=== PATIENT | male | born 1995 | race African-American/Black ===

== ENCOUNTER 2019-06-20 10:10 | Emergency (ER) | payer BC ==
[~2019-06-20] VITALS: Ht 175.3 cm; Wt 64.0 kg
[2019-06-20] MEDS ORDERED: MORPHINE SULFATE 4 MG/ML CPJ (NOT FOR IM USE) IV ONE (10:45)
[2019-06-20] MEDS ORDERED: KETAMINE HCL 50 MG/ML 10ML IV ONE (11:15)
[2019-06-20] MEDS ORDERED: PROPOFOL 200MG/20ML VIAL IV PRN (11:15)
[2019-06-20] MEDS ORDERED: ONDANSETRON HCL 4MG/2ML INJ IV ONE (11:15)
[2019-06-20 12:48] VITALS: BP 153/102
== END 2019-06-20 12:59 | disposition home or self-care (01) ==
LOC: ER 10:21
DX: S43.004A Unspecified dislocation of right shoulder joint, initial encounter (principal); X58.XXXA Exposure to other specified factors, initial encounter; Y93.89 Activity, other specified; Y92.89 Other specified places as the place of occurrence of the external cause; Y99.8 Other external cause status
CPT/HCPCS: 73030; 93005; 96374; 96375; 99285; J2270; J2405; J2704; J3490; Z7610; L3670

== ENCOUNTER 2021-10-15 11:39 | Emergency (ER) | payer BC, MEDICAID ==
[~2021-10-15] VITALS: Ht 157.5 cm; Wt 63.0 kg
[2021-10-15] MEDS ORDERED: MORPHINE SULFATE 4 MG/ML CPJ (NOT FOR IM USE) IV STA (12:04)
[2021-10-15] MEDS ORDERED: SODIUM CHLORIDE 0.9% 1,000 ML IV ONE (12:15)
[2021-10-15] MEDS ORDERED: PROPOFOL 200MG/20ML VIAL IV ONE (13:00)
[2021-10-15 16:13] VITALS: BP 145/103
== END 2021-10-15 16:35 | disposition home or self-care (01) ==
LOC: ER 11:51
DX: S43.084A Other dislocation of right shoulder joint, initial encounter (principal); W01.0XXA Fall on same level from slipping, tripping and stumbling without subsequent striking against object, initial encounter; Y93.89 Activity, other specified; Y92.89 Other specified places as the place of occurrence of the external cause; Y99.8 Other external cause status
CPT/HCPCS: 23650; 73030; 96374; 99152; 99285; J2270; J2704; J7030; A4565

== ENCOUNTER 2022-01-06 21:12 | Emergency (ER) | payer MEDICAID ==
[~2022-01-06] VITALS: Ht 167.6 cm; Wt 68.0 kg
[2022-01-06] MEDS ORDERED: MORPHINE SULFATE 10 MG/ML CPJ IM ONE (22:00)
[2022-01-06] MEDS ORDERED: PROPOFOL 200MG/20ML VIAL IV ONE (22:45)
[2022-01-06] MEDS ORDERED: SODIUM CHLORIDE 0.9% 1,000 ML IV ONE (22:45)
[2022-01-06 23:15] LABS: CHLORIDE 106 mEq/L (98-107)
[2022-01-06 23:25] LABS: BASOPHILS % 0.6 % (0.0-2.0); EOSINOPHILS % 4.6 % (0.0-5.0); HEMATOCRIT. 38.9 % (42.0-52.0); HEMOGLOBIN. 13.1 g/dL (14.0-18.0); LYMPHOCYTES % 18.5 % (20.0-50.0); MEAN CORPUSCULAR HEMOGLOBIN 29.7 pg (28.0-32.0); MEAN CORPUSCULAR VOLUME 88.4 fL (80.0-94.0); MEAN PLATELET VOLUME 8.8 fl (7.4-10.4); MONOCYTES % 9.5 % (2.0-8.0); NEUTROPHILS % 66.8 % (40.0-76.0); PLATELET 255 x1000/uL (130-400); RED CELL DISTRIBUTION WIDTH 14.3 % (11.6-14.6)
[2022-01-07] MEDS ORDERED: IBUP-2029 MT (00:23)
[2022-01-07] MEDS ORDERED: HYDR-4001 MT (00:23)
[2022-01-07 01:30] VITALS: BP 138/83
== END 2022-01-07 02:08 | disposition home or self-care (01) ==
LOC: ER 21:12
DX: S43.084A Other dislocation of right shoulder joint, initial encounter (principal); W06.XXXA Fall from bed, initial encounter; Y93.89 Activity, other specified; Y92.89 Other specified places as the place of occurrence of the external cause; Y99.8 Other external cause status; F12.10 Cannabis abuse, uncomplicated
CPT/HCPCS: 23650; 36415; 73030; 80048; 85025; 96360; 96372; 99152; 99285; J2270; J2704; J7030

== ENCOUNTER 2022-02-25 01:30 | Emergency (ER) | payer MEDICAID ==
[~2022-02-25] VITALS: Ht 172.7 cm; Wt 75.0 kg
[~2022-02-25 01:30] MED LIST: HYDR-4001 MT; IBUP-2029 MT
[2022-02-25] MEDS ORDERED: ONDANSETRON HCL 4MG/2ML INJ IV STA (02:22)
[2022-02-25] MEDS ORDERED: MORPHINE SULFATE 4 MG/ML CPJ (NOT FOR IM USE) IV STA (02:22)
[2022-02-25] MEDS ORDERED: PROPOFOL 200MG/20ML VIAL IV ONE (02:45)
[2022-02-25] MEDS ORDERED: PROPOFOL 200MG/20ML VIAL IV NR (03:15)
[2022-02-25 05:00] VITALS: BP 145/96
== END 2022-02-25 05:24 | disposition home or self-care (01) ==
LOC: ER 01:49
DX: S43.004A Unspecified dislocation of right shoulder joint, initial encounter (principal); W18.39XA Other fall on same level, initial encounter; Y93.89 Activity, other specified; Y92.89 Other specified places as the place of occurrence of the external cause; Y99.8 Other external cause status; F12.10 Cannabis abuse, uncomplicated
CPT/HCPCS: 23650; 73030; 94640; 96374; 96375; 99152; 99285; J2270; J2405; J2704; A4565